=== PATIENT | female | born 1980 | race Caucasian/White ===

== ENCOUNTER 2020-06-09 13:15 | Emergency (ER) | payer MEDICARE, OTHER ==
[~2020-06-09] VITALS: Ht 172.7 cm; Wt 164.2 kg
[~2020-06-09 13:15] MED LIST: ALBU0.0912 IH; ATI.5 PO; BENZ-203 PO; FENO130C9 PO; FLUO40CA6 PO; HAL5 PO; IBUP-2213 PO; KEP500 PO; LEVE1000 PO; LORA0.5T6 PO; PANT40EC PO; RISP2TAB PO; TOPI200T7 PO; VALS160T2 PO
[2020-06-09] MEDS ORDERED: LORazepam 2 MG/ML VIAL IVP ONE ×3 (13:25→16:20)
[2020-06-09 13:26] VITALS: BP 109/62
[2020-06-09 14:32] LABS: BASOPHILS # (AUTO) 0.1 K/uL (0.00-0.22); BASOPHILS % (AUTO) 1.2 % (0.0-2.0); EOSINOPHILS # (AUTO) 0.3 K/uL (0-0.4); EOSINOPHILS % (AUTO) 2.7 % (0.0-4.0); HEMATOCRIT 39.7 % (36-48); HEMOGLOBIN 12.9 g/dL (12.0-16.0); LYMPHOCYTES % (AUTO) 18.8 % (20.5-51.1); MEAN CORPUSCULAR HEMOGLOBIN 28 pg (27-31); MEAN CORPUSCULAR HGB CONC 33 g/dL (33-37); MEAN CORPUSCULAR VOLUME 87.4 fL (80-94); MONOCYTES # (AUTO) 0.9 K/uL (0.8-1.0); MONOCYTES % (AUTO) 8.4 % (1.7-9.3); NEUTROPHILS # (AUTO) 7.3 K/uL (1.8-7.7); NEUTROPHILS % (AUTO) 68.9 % (42.2-75.2); PLATELET COUNT (AUTO) 238 K/uL (140-450); RED BLOOD CELL COUNT(AUTO) 4.54 MIL/uL (4.20-5.40); RED CELL DISTRIBUTION WIDTH 14.1 % (11.6-13.7); WHITE BLOOD COUNT (AUTO) 10.6 K/uL (4.8-10.8)
[2020-06-09] MEDS ORDERED: LORazepam 2 MG/ML VIAL ONE (14:39)
[2020-06-09 14:43] LABS: ALBUMIN 3.3 g/dL (3.4-5.0); ANION GAP 14.9 (8-16); CARBON DIOXIDE 24.1 mmol/L (21-32); CREATININE 0.6 mg/dL (0.6-1.3); TOTAL BILIRUBIN 0.3 mg/dL (0.0-1.0)
[2020-06-09 16:04] LABS: APPEARANCE,URINE HAZY (CLEAR); BILIRUBIN,URINE NEGATIVE (NEGATIVE); BLOOD, URINE NEGATIVE (NEGATIVE); COLOR,URINE YELLOW (YELLOW); LEUKOCYTE ESTERASE ,URINE NEGATIVE (NEGATIVE); NITRITE, URINE NEGATIVE (NEGATIVE); PH,URINE 5.5 (5.0-9.0); UGLUCOSE NEGATIVE (NEGATIVE)
[2020-06-09 17:47] VITALS: BP 122/59
== END 2020-06-09 17:45 | disposition home or self-care (01) ==
LOC: MED 13:15
DX: R56.9 Unspecified convulsions (principal); E11.9 Type 2 diabetes mellitus without complications; I10 Essential (primary) hypertension; Z88.8 Allergy status to other drugs, medicaments and biological substances; Z79.899 Other long term (current) drug therapy
CPT/HCPCS: 36415; 70450; 71045; 80053; 81003; 85025; 96374; 96376; 99285; J2060; Q0092

== ENCOUNTER 2022-07-17 20:13 | Inpatient (IN) | payer MEDICARE, OTHER ==
[~2022-07-17] VITALS: Ht 172.7 cm; Wt 164.2 kg
[~2022-07-17 20:13] MED LIST changes: -BENZ-203 PO; +BENZ-315 PO
--- NOTE | 2022-07-17 20:15 | NUR ---
PT BIBA FOR UNWITNESSED SEIZURE, PT WAS ON A WALK AND CALLED FAMILY STATING SHE WAS GOING TO HAVE A SEIZURE, FAMILY FOUND HER IN THE GRASS FACE DOWN, EMS ADMINSTERED A TOTAL OF 10 MG VERSED IN AND 10MG IM. REPORT GIVEN BY EMS, PT PLACED IN GOWN AND ON CONTACT PRINTER DRY FILM, SEIZURE PADS PLACED. IV ACCESS OBTAINED BY RN. DR CHAMBERS NOTIFIED.
--- NOTE | 2022-07-17 20:15 | NUR ---
PT BROUGHT TO BED 3 VIA JERRY JEFFRIES
--- NOTE | 2022-07-17 20:15 | NUR ---
EMS STATED PT HAD MULTIPLE SEIZURE ON THE WAY, PT HX- MENTALLY DELAYED, SEIZURE, PT PEAKING IN COMPLETE SENTENCES, NON POSTICAL, PT ANSWERED ALL A/OX 4 QUESTIONS.
[2022-07-17 20:17] VITALS: BP 111/80
--- NOTE | 2022-07-17 20:54 | NUR ---
LABS GIVEN TO PSYCHOLOGIST SOCIAL.
[2022-07-17] MEDS ORDERED: levETIRAcetam 1,000 MG in NACL 0.9% 100 ML IV ONE (21:00)
[2022-07-17 21:10] LABS: BASOPHILS # (AUTO) 0.1 K/uL (0.00-0.22); BASOPHILS % (AUTO) 0.5 % (0.0-2.0); EOSINOPHILS # (AUTO) 0.2 K/uL (0-0.4); EOSINOPHILS % (AUTO) 1.3 % (0.0-4.0); HEMATOCRIT 37.1 % (36-48); HEMOGLOBIN 12.2 g/dL (12.0-16.0); LYMPHOCYTES # (AUTO) 1.7 K/uL (2.5-16.5); LYMPHOCYTES % (AUTO) 14.2 % (20.5-51.1); MEAN CORPUSCULAR HEMOGLOBIN 27 pg (27-31); MEAN CORPUSCULAR HGB CONC 33 g/dL (33-37); MEAN CORPUSCULAR VOLUME 83.1 fL (80-94); MONOCYTES % (AUTO) 7.8 % (1.7-9.3); NEUTROPHILS # (AUTO) 9.4 K/uL (1.8-7.7); NEUTROPHILS % (AUTO) 76.2 % (42.2-75.2); PLATELET COUNT (AUTO) 192 K/uL (140-450); RED BLOOD CELL COUNT(AUTO) 4.46 MIL/uL (4.20-5.40); RED CELL DISTRIBUTION WIDTH 14.6 % (11.6-13.7); WHITE BLOOD COUNT (AUTO) 12.3 K/uL (4.8-10.8)
[2022-07-17] MEDS ORDERED: levETIRAcetam 100 MG/ML VIAL IV ONE (21:14)
--- NOTE | 2022-07-17 21:25 | NUR ---
PATIENT POSSIBLY HAVING SEIZURE WITH MD CHAMBERS AT BEDSIDE ASSESSING PATIENT. PATIENT RESPONDED TO SOLE REFLEX STIMULATION AT THIS TIME. PATIENT ON MONITOR AND KEPPRA AT THIS TIME. NO FURTHER ORDERS AT THIS TIME.
[2022-07-17] MEDS ORDERED: LORazepam 2 MG/ML VIAL IVP ONE (21:35)
--- NOTE | 2022-07-17 21:46 | NUR ---
PATIENT AMBULATED TO WITH STEADY GAIT. URINE COLLECTED
--- NOTE | 2022-07-17 21:55 | NUR ---
PATIENT ULISSES COLLECTED
--- NOTE | 2022-07-17 21:57 | NUR ---
PATIENT TAKEN TO CT VIA [facility]
--- NOTE | 2022-07-17 22:01 | NUR ---
PATIENT RETURNED FROM CT VIA [facility]
[2022-07-17] MEDS ORDERED: LOSA100T1 PO (22:03)
[2022-07-17] MEDS ORDERED: MONT10TA35 PO (22:03)
[2022-07-17] MEDS ORDERED: ATOR10TA PO (22:03)
[2022-07-17] MEDS ORDERED: METF-350 PO (22:03)
[2022-07-17 22:10] LABS: ANION GAP 15.1 (8-16); CARBON DIOXIDE 23.9 mmol/L (21-32)
[2022-07-17 22:11] LABS: TOTAL BILIRUBIN 0.2 mg/dL (0.0-1.0)
--- NOTE | 2022-07-17 23:32 | NUR ---
PATIENT APPEARS TO BE HAVING A SEIZURE. STERNAL RUB DONE. PATIENT O2 BACK TO BASELINE. MD AWARE.
[2022-07-18] MEDS ORDERED: ONDANSETRON 4 MG/2 ML VIAL IVP PRN (00:45)
[2022-07-18] MEDS ORDERED: LORazepam 1 MG TAB PO PRN (00:45)
[2022-07-18] MEDS ORDERED: HYDROcodone/APAP 5/325 MG 1 TAB TAB PO PRN (00:45)
[2022-07-18] MEDS ORDERED: MORPHINE SULFATE 4 MG/ML SYR IVP PRN (00:45)
--- NOTE | 2022-07-18 01:00 | NUR ---
Patient will be admitted to care of DO ZACKERY. Admited to TELEMETRY. Will go to room 106A. Belongings list completed. Report to JOAQUIN ALEJO. TRANSFER OF CARE
--- NOTE | 2022-07-18 01:20 | NUR ---
PATIENT WAS ADMITTED TO MST UNIT FROM ER VIA GURNEY. AAOX3. NO S/S OF RESPIRATORY DISTRESS. BREATHING NORMAL UNLABORED. ALL SAFETY PRECAUTIONS ARE IN PLACE. BED IN LOW POSITION WHEELS LOCKED. CALL LIGHT WITHIN REACH. MRSA SCREENING DONE. SKIN INTACT NO WOUNDS. PATIENT IS FOR OBSERVATION.
[2022-07-18] MEDS: NACL 0.9% 1,000 ML IV SCH ×2 (02:55→15:39)
[2022-07-18 04:00] VITALS: BP 121/68
[2022-07-18] MEDS ORDERED: DEXTROSE 50% 50 ML SYR IVP PRN (06:10)
--- NOTE | 2022-07-18 06:25 | NUR ---
FOUND PATIENT HAVING SEIZURES. PAGED DR. CRAWFORD CHILD PROTECTIVE SERVICES SPECIALIST DR FOR DR ZACKERY POLK. AWAITING FOR CALL BACK.
[2022-07-18] MEDS: BLOOD GLUCOSE MONITORING 1 DEV DEV FS SCH ×4 (06:54→21:03)
[2022-07-18] MEDS: INSULIN LISPRO SLIDING SCALE 100 UNITS/ML VIAL SUBQ PRN ×3 (06:55→21:03)
--- NOTE | 2022-07-18 07:35 | NUR ---
ENDORSED PATIENT TO DAY SHIFT NURSE FOR CONTINUITY OF CARE.
--- NOTE | 2022-07-18 07:36 | NUR ---
RECEIVED CALL FROM CONTINGENTS SUPERVISOR NURSE MELO FOR CONTINUITY OF CARE. PATIENT CALM AWAKE NO DISTRESS NOTED. RESPIRATION EVEN NAD NOT LABORED REPORTED ON 3 L OF O2 NASAL CANULA BUT WHEN I DID ROUND PATIENT ON ROOM AIR SATURATION OF 94% NOT ON ANY DISTRESS. IV SITE ON RIGHT WRIST RUNNING D5 NS AT 80 CC/HOUR. ALL SAFETY MEASURE IN PLACE.
[2022-07-18 08:00] VITALS: BP 113/62
--- NOTE | 2022-07-18 08:02 | NUR ---
RECEIVED CALL FROM MOTHER SUSHMA ALVAREZ ASKING THE PATIENT CONDITION AND UPDATED ON PATIENT CONDITION.
[2022-07-18] MEDS ORDERED: VALSARTAN 80 MG TAB PO SCH (09:00)
[2022-07-18] MEDS ORDERED: levETIRAcetam 500 MG TAB PO SCH (09:00)
--- NOTE | 2022-07-18 09:04 | NUR ---
SEEN AND EVALUATED BY DR. VIZCARRA. ALL HER HOME MEDICATION RECONCILED BY DR. VIZCARRA.
[2022-07-18] MEDS: FLUoxetine 20 MG CAP PO SCH (09:16)
[2022-07-18] MEDS: PANTOPRAZOLE 40 MG TABEC PO SCH (09:17)
[2022-07-18] MEDS: risperiDONE 1 MG TAB PO SCH ×2 (09:17→20:51)
[2022-07-18] MEDS: ATORVASTATIN 20 MG TAB PO SCH (09:17)
[2022-07-18] MEDS: LOSARTAN 50 MG TAB PO SCH (09:18)
[2022-07-18] MEDS: ACETAMINOPHEN 325 MG TAB PO PRN ×2 (09:18→22:22)
[2022-07-18] MEDS: TOPIRAMATE 100 MG TAB PO SCH ×2 (09:19→20:50)
--- NOTE | 2022-07-18 09:25 | NUR ---
PT TOOK ALL DUE MEDS. TOLERATED WELL. NO EPISODES OF SEIZURE AT THIS TIME, NO DISTRESS NOTED.
--- NOTE | 2022-07-18 11:04 | NUR ---
NURSE GOT CALLED INTO THE ROOM PT WAS SEIZING. RN AT BEDSIDE. PT ON SIDE SEIZED FOR 2 MINUTES.
[2022-07-18] MEDS: LORazepam 2 MG/ML VIAL IVP PRN (11:06)
--- NOTE | 2022-07-18 11:06 | NUR ---
ADMINISTERED PRN IVP ATIVAN FOR TONIC CLONIC SEIZURE FO ASSISTANT ASSOCIATE FULL PROFESSOR SERGIO.
[2022-07-18 12:00] VITALS: BP 121/76
--- NOTE | 2022-07-18 13:00 | NUR ---
PT C/O OF NAUSEA. GIVEN SODA PER REQUEST AND ZOFRAN IV BY JOAQUIN HERNÁNDEZ.
--- NOTE | 2022-07-18 13:56 | NUR ---
PATIENT HAS BEEN SCREENED AND CATEGORIZED MODERATE NUTRITION RISK. PATIENT WILL BE SEEN WITHIN 3-5 DAYS OF ADMISSION. 07/21/2210/24/[address]
--- NOTE | 2022-07-18 14:50 | NUR ---
AT 1434 I WAS CALLED TO HER ROOM THAT PATIENT IS HAVING SEIZURE NOTED WITH STIFFNESS OF BODY LASTED FOR 1 MINUTE AND THEN IT STOP AND CONTINUITY AGAIN FO ANOTHER MINUTE PATIENT SAFE BREATHING HEAVILY AT BEGINNING BUT CALM DOWN AFTER FEW MINUTE. NO INJURY NOTED. ON O2 AT 2L/MIN VIA NASAL CANULA. INFORM DR. VIZCARRA AND HE ORDER TO CHANGE KEPPRA ORAL TO IVPB ORDER NOTED AND CARRIED OUT.
--- NOTE | 2022-07-18 14:55 | NUR ---
IV ACCIDENTALLY PULLED WHEN PATIENT IS HAVING SEIZURE WILL TRY TO INSERT.
--- NOTE | 2022-07-18 15:30 | NUR ---
IV INSERTED 2X TRY. DR. ZAZUETA SEEN PATIENT AT BED SIDE.
[2022-07-18 16:00] VITALS: BP 111/71
--- NOTE | 2022-07-18 16:00 | NUR ---
ASSISTED PATIENT TO TOILET PATIENT ABLE AMBULATE NO SEIZURE NOTED AT THIS TIME.
--- NOTE | 2022-07-18 18:00 | NUR ---
SERVE DINNER AND PATIENT HAPPY TO HAVE HER DINNER SERVE.
--- NOTE | 2022-07-18 19:20 | NUR ---
ENDORSED PT TO CNC LATHE PROGRAMMER NURSE FOR CONTINUITY OF CARE. PT IN STABLE CONDITION.
--- NOTE | 2022-07-18 19:21 | NUR ---
RECEIVED REPORT FROM MORNING SHIFT NURSE FOR CONTINUITY OF CARE. PATIENT IN BED RESTING. NO S/S OF RESPIRATORY DISTRESS. BREATHING REGULAR NON LABORED. ALL SAFETY MEASURES IN PLACE. SKIN WARM AND DRY TO TOUCH. DENIES PAIN. AMBULATORY. IVF NS INFUSING AT 80 ML/HR ON THE LEFT FOREARM. CALL LIGHT WITHIN REACH.
[2022-07-18 20:00] VITALS: BP 106/59
--- NOTE | 2022-07-18 20:51 | NUR ---
ALL 2100 MEDICATIONS ADMINISTERED PER MD ORDER. TOLERATED WELL.
[2022-07-18] MEDS ORDERED: MONTELUKAST SODIUM 10 MG TAB PO SCH (21:00)
--- NOTE | 2022-07-18 21:03 | NUR ---
BLOOD SUGAR CHECK WAS 166 , HUMALOG INSULIN ADMINISTERED ORDERED PER SLIDING SCALE.
[2022-07-18] MEDS: levETIRAcetam 2,000 MG in NACL 0.9% 100 ML IV SCH (21:05)
--- NOTE | 2022-07-18 22:23 | NUR ---
PATIENT COMPLAINED OF MILD HEADACHE, MEDICATED.
[2022-07-19] VITALS: BP 133/66
[2022-07-19] MEDS: NACL 0.9% 1,000 ML IV SCH ×2 (01:45→06:40)
--- NOTE | 2022-07-19 02:10 | NUR ---
PATIENT SLEEPING. RESPIRATION EVEN UNLABORED. CALL LIGHT WITHIN REACH.
[2022-07-19 04:00] VITALS: BP 104/76
[2022-07-19] MEDS: BLOOD GLUCOSE MONITORING 1 DEV DEV FS SCH ×2 (06:39→12:04)
--- NOTE | 2022-07-19 07:25 | NUR ---
RECEIVED BEDSIDE REPORT FROM ETHICS OFFICER NURSE. PATIENT SLEEPING AROUSABLE BY TOUCH AND NAME. RESPIRATION EVEN UNLABORED ON ROOM AIR. NO DISTRESS NOTED. SKIN IS WARM AND DRY. IV PATENT AND INTACT. PLAN OF CARE DISCUSSED. ALL SAFETY MEASURE IN PLACE. BED IS AT LOW POSITION. CALL LIGHT WITHIN REACH. WILL CONTINUE TO MONITOR.
--- NOTE | 2022-07-19 07:26 | NUR ---
REPORT GIVEN TO MORNING SHIFT NURSE FOR CONTINUITY OF CARE. NO EPISODE OF SEIZURE DURING THE SHIFT.
[2022-07-19 07:38] LABS: ALBUMIN 2.8 g/dL (3.4-5.0); ANION GAP 13.8 (8-16); CREATININE 0.7 mg/dL (0.6-1.3); POTASSIUM 3.8 mmol/L (3.5-5.1); TOTAL BILIRUBIN 0.3 mg/dL (0.0-1.0)
[2022-07-19 08:00] VITALS: BP 124/74
[2022-07-19] MEDS: LORazepam 2 MG/ML VIAL IVP PRN (08:42)
[2022-07-19] MEDS: LOSARTAN 50 MG TAB PO SCH (08:43)
[2022-07-19] MEDS: FLUoxetine 20 MG CAP PO SCH (08:43)
[2022-07-19] MEDS: risperiDONE 1 MG TAB PO SCH (08:43)
[2022-07-19] MEDS: ATORVASTATIN 20 MG TAB PO SCH (08:44)
[2022-07-19] MEDS: PANTOPRAZOLE 40 MG TABEC PO SCH (08:44)
[2022-07-19] MEDS: levETIRAcetam 2,000 MG in NACL 0.9% 100 ML IV SCH (08:44)
[2022-07-19] MEDS: TOPIRAMATE 100 MG TAB PO SCH (08:44)
--- NOTE | 2022-07-19 08:45 | NUR ---
ALL SCHEDULED MEDS WERE GIVEN PER ORDER. WILL CONTINUE TO MONITOR
--- NOTE | 2022-07-19 08:48 | NUR ---
PATIENT HAD AN EPISODE OF SEIZURE FOR 2MINS, RT AND PT AT THE BEDSIDE. VITALS WERE TAKEN. PRN ATIVAN GIVEN PER ORDER. WILL CONTINUE TO MONITOR.
[2022-07-19 09:59] LABS: CREATININE 0.6 mg/dL (0.6-1.3)
--- NOTE | 2022-07-19 10:09 | NUR ---
DC PLANNING PT IS DEVELOPMENTALLY DELAYED THEREFORE ANIKET OUTREACHED TO PT'S MOTHER, SUSHMA ALVAREZ TO GATHER COLLATERAL INFORMATION. SUSHMA REPORTS PATIENT RESIDES N A SINGLE STORY APT WITH HER AT THE ADDRESS LISTED ON FILE. SUSHMA IS PATIENTS EMERGENCY CONTACT AND DECISION MAKER. SUSHMA REPORTS THAT PTS SISTER, SALONI, CAN ALSO BE UTILIZED EMERGENCY CONTACT. PT IS REPORTED TO MEET WITH PCP REGULARLY, LAST VISIT; "COUPLE MONTHS AGO". SUSHMA REPORTS PATIENT ALSO MEET WITH A NEUROLOGIST DR. LUIS EVERY 2-5 MONTHS. PATIENT IS ALSO FOLLOWED BY PSYCHIATRIST DR. CASANOVA ([phone]) WHOM SHE MEETS WITH EVERY 5-8 WEEKS. 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 SUSHMA REPORTS THAT PATIENT HAS BEEN OFF MEDS FOR SCHIZOPHRENIA FOR THE LAST SEVERAL YEARS HOWEVER, IS MAKING ARRANGEMENTS TO MEET WITH PSYCHIATRIST FOR PATIENT TO BE REEVALUATED FOR MEDS. PATIENT IS [facility], [facility], [employer]. SUSHMA REPORTS WORKING CLOSELY WITH [facility] WORKER ON FINDING PATIENT A [facility] PATIENT HAS CHRONIC TENDENCIES TO WANDER OFF. PATIENT IS REPORTED TO WANDER OFF 1-2X WEEKLY. SUSHMA REPORTS THAT PATIENT IS MEDICATION COMPLIANT AND DENIES BARRIERS IN ACCESSING NEEDED MEDICATIONS. PATIENT RECEIVES MEDICATION FROM [facility] [address] IN [place], WHEN NEEDED. PATIENT IS REPORTED TO BE AMBULATORY WITH OCCASIONAL DME ASSISTANCE; FWW, CANE, WC AND REQUIRES ASSISTANCE WITH ADL'S. SUSHMA IS PATIENTS IHSS CAREGIVER AND RECEIVES 104 HRS/WEEK. PATIENT ALSO RECEIVES RESPITE HOURS OD 4HRS/3X WEEKLY. DC PLAN IS FOR PATIENT TO RETURN HOME WITH MOTHER PROVIDING TRANSPORTATION. ANIKET INQUIRED ON RESOURCES NEEDED, SUSHMA DECLINED AT THIS TIME.
--- NOTE | 2022-07-19 11:30 | NUR ---
MADE ROUNDS, PATIENT SLEEPING NO DISTRESS NOTED. WILL CONTINUE TO MONITOR
[2022-07-19 11:42] VITALS: BP 107/69
[2022-07-19 12:00] VITALS: BP 111/77
--- NOTE | 2022-07-19 12:00 | NUR ---
ALL DISCHARGE PAPERWORK SIGNED, EXPLAINED DISCHARGE INSTRUCTION. PATIENT VERBALIZES UNDERSTANDING. AWAITING FOR TRAY PACKER
[2022-07-19] MEDS: INSULIN LISPRO SLIDING SCALE 100 UNITS/ML VIAL SUBQ PRN (12:05)
--- NOTE | 2022-07-19 12:17 | NUR ---
NOTIFIED PATIENT THAT SHES GETTING DISCHARGE TODAY, NOTIFIED FAMILY MEMBER. FAMILY AWARE AND WILL BE HERE SOON.
--- NOTE | 2022-07-19 12:50 | NUR ---
PATIENT LEFT THE FACILITY IN STABLE CONDITION, HEADING HOME. ALL BELONGINGS AND PAPERWORK GIVEN.
== END 2022-07-19 13:47 | disposition home or self-care (01) | DRG 101 ==
LOC: MED 20:13 → MTU 07-18 00:52 → OBSVTOIN 07-19 09:08
PROVIDERS: ADMIT Internal Medicine; ATTEND Internal Medicine
DX: G40.909 Epilepsy, unspecified, not intractable, without status epilepticus (principal); Z68.43 Body mass index [BMI] 50.0-59.9, adult; E11.9 Type 2 diabetes mellitus without complications; F41.9 Anxiety disorder, unspecified; I10 Essential (primary) hypertension; J45.909 Unspecified asthma, uncomplicated; E66.01 Morbid (severe) obesity due to excess calories; Z20.822 Contact with and (suspected) exposure to COVID-19; Z88.8 Allergy status to other drugs, medicaments and biological substances; Z82.5 Family history of asthma and other chronic lower respiratory diseases; Z82.49 Family history of ischemic heart disease and other diseases of the circulatory system
CPT/HCPCS: 96365; 99291; G0378; 36415; 70450; 80053; 80173; 82948; 83735; 85025; 87081; 97163-GP; 97530; J1953; J2060; J2405

== ENCOUNTER 2024-03-16 18:53 | Emergency (ER) | payer OTHER ==
[~2024-03-16] VITALS: Ht 165.1 cm; Wt 99.8 kg
[2024-03-16 18:53] VITALS: BP 139/87; PULSE 84; RESP 17; TEMP 98; O2SAT 97
[~2024-03-16 18:53] MED LIST changes: +ATOR10TA PO; -FENO130C9 PO; +LOSA-272 PO; +METF-350 PO; +MONT-72 PO
[2024-03-16 20:42] LABS: APPEARANCE,URINE CLEAR (CLEAR); BILIRUBIN,URINE NEGATIVE (NEGATIVE); BLOOD, URINE NEGATIVE (NEGATIVE); COLOR,URINE YELLOW (YELLOW); LEUKOCYTE ESTERASE ,URINE NEGATIVE (NEGATIVE); NITRITE, URINE NEGATIVE (NEGATIVE); PROTEIN,URINE NEGATIVE (NEGATIVE); UGLUCOSE NEGATIVE (NEGATIVE); UROBILINOGEN,URINE 0.2 EU/dL (0.2 - 1)
[2024-03-16 20:56] LABS: ALBUMIN 3.4 g/dL (3.4-5.0); TOTAL BILIRUBIN 0.1 mg/dL (0.0-1.0); TOTAL PROTEIN, SERUM 7.4 g/dL (6.4-8.2)
[2024-03-16 21:01] LABS: BASOPHILS # (AUTO) 0.1 K/uL (0.00-0.22); BASOPHILS % (AUTO) 0.5 % (0.0-2.0); EOSINOPHILS # (AUTO) 0.3 K/uL (0-0.4); EOSINOPHILS % (AUTO) 2.2 % (0.0-4.0); HEMATOCRIT 40.6 % (36-48); HEMOGLOBIN 12.8 g/dL (12.0-16.0); LYMPHOCYTES % (AUTO) 27.7 % (20.5-51.1); MEAN CORPUSCULAR HEMOGLOBIN 27 pg (27-31); MEAN CORPUSCULAR HGB CONC 32 g/dL (33-37); MEAN CORPUSCULAR VOLUME 83.7 fL (80-94); MONOCYTES # (AUTO) 1.1 K/uL (0.8-1.0); MONOCYTES % (AUTO) 7.4 % (1.7-9.3); NEUTROPHILS # (AUTO) 9.1 K/uL (1.8-7.7); NEUTROPHILS % (AUTO) 62.2 % (42.2-75.2); PLATELET COUNT (AUTO) 92 K/uL (140-450); RED BLOOD CELL COUNT(AUTO) 4.85 MIL/uL (4.20-5.40); RED CELL DISTRIBUTION WIDTH 14.7 % (11.6-13.7); WHITE BLOOD COUNT (AUTO) 14.6 K/uL (4.8-10.8)
[2024-03-16 21:02] LABS: ANION GAP 14.9 (8-16); CALCIUM 8.9 mg/dL (8.5-10.1); CARBON DIOXIDE 22.9 mmol/L (21-32); CREATININE 0.6 mg/dL (0.6-1.3); POTASSIUM 3.8 mmol/L (3.5-5.1)
[2024-03-16] MEDS ORDERED: ALUMINUM HYD/MAG/SIMETHICONE 30 ML UDC ONE (22:05)
[2024-03-16] MEDS ORDERED: DICYCLOMINE HCL LIQUID 10 MG/5 ML UDC ONE (22:05)
[2024-03-16] MEDS: DICYCLOMINE HCL LIQUID 20 MG, ALUMINUM HYD/MAG/SIMETHICONE 30 ML, LIDOCAINE VISCOUS 2% ... PO ONE (22:16)
[2024-03-17] MEDS ORDERED: OMEP40EC23 PO (01:03)
[2024-03-17] MEDS ORDERED: SUCR1TAB56 PO (01:03)
[2024-03-17 09:37] VITALS: BP 129/84; PULSE 80; RESP 18; TEMP 98; O2SAT 97
== END 2024-03-17 09:35 | disposition home or self-care (01) ==
LOC: MED 18:53
DX: R10.13 Epigastric pain (principal); R10.31 Right lower quadrant pain; J45.909 Unspecified asthma, uncomplicated; E11.9 Type 2 diabetes mellitus without complications; I10 Essential (primary) hypertension; Z79.4 Long term (current) use of insulin; Z79.899 Other long term (current) drug therapy; Z86.69 Personal history of other diseases of the nervous system and sense organs; Z88.8 Allergy status to other drugs, medicaments and biological substances
CPT/HCPCS: 36415; 80048; 80076; 81003; 81025; 83690; 85025; 99285

== ENCOUNTER 2024-04-06 17:52 | Emergency (ER) | payer OTHER ==
[~2024-04-06] VITALS: Ht 172.7 cm; Wt 140.2 kg
[~2024-04-06 17:52] MED LIST changes: +OMEP40EC23 PO; +SUCR1TAB56 PO
[2024-04-06 18:22] VITALS: BP 141/96; PULSE 81; RESP 18; TEMP 97.9; O2SAT 96
[2024-04-06 19:00] VITALS: O2SAT 97
[2024-04-06 20:08] VITALS: BP 136/92; PULSE 78; RESP 18; TEMP 98.1; O2SAT 98
== END 2024-04-06 20:12 | disposition home or self-care (01) ==
LOC: MED 17:52
DX: S09.90XA Unspecified injury of head, initial encounter (principal); J45.909 Unspecified asthma, uncomplicated; E11.9 Type 2 diabetes mellitus without complications; I10 Essential (primary) hypertension; Z86.69 Personal history of other diseases of the nervous system and sense organs; Z79.899 Other long term (current) drug therapy; Z88.8 Allergy status to other drugs, medicaments and biological substances; W01.198A Fall on same level from slipping, tripping and stumbling with subsequent striking against other object, initial encounter; Y92.89 Other specified places as the place of occurrence of the external cause; Y93.89 Activity, other specified; Y99.8 Other external cause status
CPT/HCPCS: 70450; 99284

== ENCOUNTER 2024-04-24 13:34 | Inpatient (IN) | payer OTHER ==
[~2024-04-24] VITALS: Ht 170.2 cm; Wt 113.4 kg
[2024-04-24] MEDS: LACOSAMIDE 100 MG TAB PO SCH ×2 (09:00→17:41)
[2024-04-24 13:48] VITALS: BP 119/75; PULSE 82; RESP 18; TEMP 98; O2SAT 97
[2024-04-24] MEDS: ACETAMINOPHEN 325 MG TAB PO ONE (14:20)
[2024-04-24 14:25] LABS: BASOPHILS # (AUTO) 0.1 K/uL (0.00-0.22); BASOPHILS % (AUTO) 0.6 % (0.0-2.0); EOSINOPHILS # (AUTO) 0.3 K/uL (0-0.4); EOSINOPHILS % (AUTO) 3.1 % (0.0-4.0); HEMATOCRIT 40.5 % (36-48); HEMOGLOBIN 13.1 g/dL (12.0-16.0); LYMPHOCYTES # (AUTO) 3.4 K/uL (2.5-16.5); LYMPHOCYTES % (AUTO) 31.7 % (20.5-51.1); MEAN CORPUSCULAR HEMOGLOBIN 27 pg (27-31); MEAN CORPUSCULAR HGB CONC 32 g/dL (33-37); MEAN CORPUSCULAR VOLUME 83.1 fL (80-94); MONOCYTES # (AUTO) 0.9 K/uL (0.8-1.0); MONOCYTES % (AUTO) 8.7 % (1.7-9.3); NEUTROPHILS # (AUTO) 5.9 K/uL (1.8-7.7); NEUTROPHILS % (AUTO) 55.9 % (42.2-75.2); PLATELET COUNT (AUTO) 179 K/uL (140-450); RED BLOOD CELL COUNT(AUTO) 4.88 MIL/uL (4.20-5.40); WHITE BLOOD COUNT (AUTO) 10.6 K/uL (4.8-10.8)
[2024-04-24 14:33] LABS: ANION GAP 13.2 (8-16); CARBON DIOXIDE 27.3 mmol/L (21-32); CREATININE 0.7 mg/dL (0.6-1.3); POTASSIUM 3.5 mmol/L (3.5-5.1)
[2024-04-24] MEDS: levETIRAcetam 1,000 MG in NACL 0.9% 100 ML IV ONE (14:40)
[2024-04-24] MEDS ORDERED: LORazepam 2 MG/ML VIAL ONE ×3 (14:45→19:04)
[2024-04-24] MEDS: LORazepam 2 MG/ML VIAL IVP ONE ×2 (14:46→17:46)
[2024-04-24 15:21] LABS: APPEARANCE,URINE CLEAR (CLEAR); BILIRUBIN,URINE NEGATIVE (NEGATIVE); BLOOD, URINE NEGATIVE (NEGATIVE); COLOR,URINE YELLOW (YELLOW); LEUKOCYTE ESTERASE ,URINE NEGATIVE (NEGATIVE); NITRITE, URINE NEGATIVE (NEGATIVE); PROTEIN,URINE NEGATIVE (NEGATIVE); UGLUCOSE NEGATIVE (NEGATIVE); UROBILINOGEN,URINE 0.2 EU/dL (0.2 - 1)
[2024-04-24] MEDS ORDERED: LACO100T PO (17:26)
[2024-04-24] MEDS ORDERED: DOCUSATE SODIUM 100 MG GELCAP PO PRN (17:55)
[2024-04-24] MEDS ORDERED: guaiFENesin DM 200/20 MG-10 ML 10 ML UDC PO PRN (17:55)
[2024-04-24] MEDS ORDERED: ZOLPIDEM 5 MG TAB PO PRN (17:55)
[2024-04-24] MEDS ORDERED: ACETAMINOPHEN 325 MG TAB PO PRN (17:55)
[2024-04-24] MEDS ORDERED: DEXTROSE 50% 50 ML SYR IVP PRN (18:00)
[2024-04-24] MEDS: NACL 0.9% 1,000 ML IV SCH (18:08)
[2024-04-24] MEDS: LORazepam 2 MG/ML VIAL IM/IVP ONE (19:16)
[2024-04-24] MEDS: ONDANSETRON 4 MG/2 ML VIAL IM/IVP PRN (19:36)
[2024-04-24] MEDS ORDERED: metFORMIN 850 MG TAB PO SCH (21:00)
[2024-04-24] MEDS: BENZTROPINE 1 MG TAB PO SCH (21:05)
[2024-04-24] MEDS: levETIRAcetam 500 MG TAB PO SCH (21:05)
[2024-04-24] MEDS: MONTELUKAST SODIUM 10 MG TAB PO SCH (21:06)
[2024-04-24] MEDS: risperiDONE 1 MG TAB PO SCH (21:06)
[2024-04-24] MEDS: BLOOD GLUCOSE MONITORING 1 DEV DEV FS SCH (21:12)
[2024-04-25] VITALS (9 sets, daily range): BP systolic 99–109; BP diastolic 51–75; PULSE 61–80; RESP 18; TEMP 96.5–97.6; O2SAT 94–100
[2024-04-25 07:02] LABS: BASOPHILS # (AUTO) 0.1 K/uL (0.00-0.22); BASOPHILS % (AUTO) 0.6 % (0.0-2.0); EOSINOPHILS # (AUTO) 0.4 K/uL (0-0.4); EOSINOPHILS % (AUTO) 3.4 % (0.0-4.0); HEMATOCRIT 39.2 % (36-48); HEMOGLOBIN 12.6 g/dL (12.0-16.0); LYMPHOCYTES # (AUTO) 3.3 K/uL (2.5-16.5); LYMPHOCYTES % (AUTO) 30.9 % (20.5-51.1); MEAN CORPUSCULAR HEMOGLOBIN 27 pg (27-31); MEAN CORPUSCULAR HGB CONC 32 g/dL (33-37); MEAN CORPUSCULAR VOLUME 83.3 fL (80-94); MONOCYTES # (AUTO) 0.9 K/uL (0.8-1.0); MONOCYTES % (AUTO) 8.5 % (1.7-9.3); NEUTROPHILS # (AUTO) 5.9 K/uL (1.8-7.7); NEUTROPHILS % (AUTO) 56.6 % (42.2-75.2); PLATELET COUNT (AUTO) 144 K/uL (140-450); RED BLOOD CELL COUNT(AUTO) 4.71 MIL/uL (4.20-5.40); RED CELL DISTRIBUTION WIDTH 14.8 % (11.6-13.7); WHITE BLOOD COUNT (AUTO) 10.5 K/uL (4.8-10.8)
[2024-04-25 07:38] LABS: ALBUMIN 3.2 g/dL (3.4-5.0); ANION GAP 14.5 (8-16); CALCIUM 9.1 mg/dL (8.5-10.1); CARBON DIOXIDE 24.4 mmol/L (21-32); CREATININE 0.6 mg/dL (0.6-1.3); POTASSIUM 3.9 mmol/L (3.5-5.1); TOTAL BILIRUBIN 0.4 mg/dL (0.0-1.0)
[2024-04-25] MEDS: PANTOPRAZOLE 40 MG TABEC PO SCH (08:58)
[2024-04-25] MEDS: ATORVASTATIN 20 MG TAB PO SCH (08:58)
[2024-04-25] MEDS: TOPIRAMATE 100 MG TAB PO SCH (20:28)
[2024-04-25] MEDS: INSULIN LISPRO SLIDING SCALE 100 UNITS/ML VIAL SUBQ PRN (20:39)
[2024-04-26] VITALS (10 sets, daily range): BP systolic 99–127; BP diastolic 63–73; PULSE 59–126; RESP 18–28; TEMP 96.8–98; O2SAT 97–100
[2024-04-26 08:05] LABS: ALBUMIN 3.2 g/dL (3.4-5.0); ANION GAP 14.8 (8-16); CALCIUM 9.4 mg/dL (8.5-10.1); CARBON DIOXIDE 24.2 mmol/L (21-32); CREATININE 0.6 mg/dL (0.6-1.3); TOTAL BILIRUBIN 0.3 mg/dL (0.0-1.0)
[2024-04-26 08:22] LABS: BASOPHILS # (AUTO) 0.1 K/uL (0.00-0.22); BASOPHILS % (AUTO) 0.5 % (0.0-2.0); EOSINOPHILS # (AUTO) 0.4 K/uL (0-0.4); EOSINOPHILS % (AUTO) 3.4 % (0.0-4.0); HEMATOCRIT 39.4 % (36-48); HEMOGLOBIN 12.7 g/dL (12.0-16.0); LYMPHOCYTES # (AUTO) 3.8 K/uL (2.5-16.5); LYMPHOCYTES % (AUTO) 30.3 % (20.5-51.1); MEAN CORPUSCULAR HEMOGLOBIN 27 pg (27-31); MEAN CORPUSCULAR HGB CONC 32 g/dL (33-37); MEAN CORPUSCULAR VOLUME 83.2 fL (80-94); MONOCYTES # (AUTO) 1.1 K/uL (0.8-1.0); MONOCYTES % (AUTO) 8.6 % (1.7-9.3); NEUTROPHILS # (AUTO) 7.2 K/uL (1.8-7.7); NEUTROPHILS % (AUTO) 57.2 % (42.2-75.2); PLATELET COUNT (AUTO) 166 K/uL (140-450); RED BLOOD CELL COUNT(AUTO) 4.73 MIL/uL (4.20-5.40); RED CELL DISTRIBUTION WIDTH 14.7 % (11.6-13.7); WHITE BLOOD COUNT (AUTO) 12.5 K/uL (4.8-10.8)
[2024-04-26] MEDS: HYDROcodone/APAP 7.5/325 MG 1 TAB PO PRN (09:12)
[2024-04-26] MEDS: LORazepam 2 MG/ML VIAL ONE ×2 (20:30)
[2024-04-26] MEDS: levETIRAcetam 1,000 MG in NACL 0.9% 100 ML IV ONE (21:45)
[2024-04-26] MEDS: levETIRAcetam 100 MG/ML VIAL IV ONE (22:05)
[2024-04-26] MEDS: LORazepam 2 MG/ML VIAL IVP PRN (23:08)
[2024-04-26] MEDS: LORazepam 2 MG/ML VIAL IVP ONE (23:21)
[2024-04-27] VITALS (16 sets, daily range): BP systolic 103–132; BP diastolic 63–88; PULSE 66–105; RESP 14–22; TEMP 97.1–98.1; O2SAT 95–100
[2024-04-27 05:40] LABS: BASOPHILS # (AUTO) 0.1 K/uL (0.00-0.22); BASOPHILS % (AUTO) 0.9 % (0.0-2.0); EOSINOPHILS # (AUTO) 0.4 K/uL (0-0.4); EOSINOPHILS % (AUTO) 2.9 % (0.0-4.0); HEMATOCRIT 38.5 % (36-48); HEMOGLOBIN 12.3 g/dL (12.0-16.0); LYMPHOCYTES % (AUTO) 29.6 % (20.5-51.1); MEAN CORPUSCULAR HEMOGLOBIN 27 pg (27-31); MEAN CORPUSCULAR HGB CONC 32 g/dL (33-37); MEAN CORPUSCULAR VOLUME 83.3 fL (80-94); MONOCYTES # (AUTO) 1.2 K/uL (0.8-1.0); MONOCYTES % (AUTO) 8.7 % (1.7-9.3); NEUTROPHILS # (AUTO) 7.8 K/uL (1.8-7.7); NEUTROPHILS % (AUTO) 57.9 % (42.2-75.2); PLATELET COUNT (AUTO) 134 K/uL (140-450); RED BLOOD CELL COUNT(AUTO) 4.61 MIL/uL (4.20-5.40); RED CELL DISTRIBUTION WIDTH 15.3 % (11.6-13.7); WHITE BLOOD COUNT (AUTO) 13.4 K/uL (4.8-10.8)
[2024-04-27 06:30] LABS: ALBUMIN 3.1 g/dL (3.4-5.0); ANION GAP 13.6 (8-16); CALCIUM 9.4 mg/dL (8.5-10.1); CARBON DIOXIDE 26.1 mmol/L (21-32); CREATININE 0.7 mg/dL (0.6-1.3); POTASSIUM 3.7 mmol/L (3.5-5.1); TOTAL BILIRUBIN 0.2 mg/dL (0.0-1.0); TOTAL PROTEIN, SERUM 6.9 g/dL (6.4-8.2)
[2024-04-27] MEDS: LORazepam 2 MG/ML VIAL IVP PRN (07:23)
[2024-04-27] MEDS: PANTOPRAZOLE 40 MG INJ VIAL IVP SCH (09:05)
[2024-04-27] MEDS: levETIRAcetam 500 MG in NACL 0.9% 100 ML IV SCH (10:00)
[2024-04-27] MEDS: levETIRAcetam 2,000 MG in NACL 0.9% 100 ML IV SCH (20:19)
[2024-04-27] MEDS: LACOSAMIDE 10 MG/ML GT SCH (20:28)
[2024-04-27] MEDS ORDERED: levETIRAcetam 2,000 MG in NACL 0.9% 100 ML IV SCH (21:00)
[2024-04-28] VITALS (16 sets, daily range): BP systolic 103–131; BP diastolic 62–80; PULSE 69–94; RESP 16–20; TEMP 97.1–98.3; O2SAT 94–100
[2024-04-28 05:36] LABS: BASOPHILS # (AUTO) 0.1 K/uL (0.00-0.22); BASOPHILS % (AUTO) 0.5 % (0.0-2.0); EOSINOPHILS # (AUTO) 0.4 K/uL (0-0.4); EOSINOPHILS % (AUTO) 3.4 % (0.0-4.0); HEMATOCRIT 39.2 % (36-48); HEMOGLOBIN 12.6 g/dL (12.0-16.0); LYMPHOCYTES # (AUTO) 3.4 K/uL (2.5-16.5); LYMPHOCYTES % (AUTO) 29.9 % (20.5-51.1); MEAN CORPUSCULAR HEMOGLOBIN 27 pg (27-31); MEAN CORPUSCULAR HGB CONC 32 g/dL (33-37); MEAN CORPUSCULAR VOLUME 83.3 fL (80-94); MONOCYTES # (AUTO) 0.9 K/uL (0.8-1.0); MONOCYTES % (AUTO) 8.4 % (1.7-9.3); NEUTROPHILS # (AUTO) 6.5 K/uL (1.8-7.7); NEUTROPHILS % (AUTO) 57.8 % (42.2-75.2); PLATELET COUNT (AUTO) 131 K/uL (140-450); RED CELL DISTRIBUTION WIDTH 14.7 % (11.6-13.7); WHITE BLOOD COUNT (AUTO) 11.3 K/uL (4.8-10.8)
[2024-04-28 06:25] LABS: ALBUMIN 3.3 g/dL (3.4-5.0); ANION GAP 11.9 (8-16); CALCIUM 9.2 mg/dL (8.5-10.1); CARBON DIOXIDE 26.6 mmol/L (21-32); CREATININE 0.6 mg/dL (0.6-1.3); POTASSIUM 3.5 mmol/L (3.5-5.1); TOTAL BILIRUBIN 0.4 mg/dL (0.0-1.0); TOTAL PROTEIN, SERUM 7.1 g/dL (6.4-8.2)
[2024-04-28] MEDS: PANTOPRAZOLE 40 MG INJ VIAL IVP SCH (08:26)
[2024-04-28] MEDS: POTASSIUM CHLORIDE 10 MEQ TABER PO PRN (08:27)
[2024-04-28] MEDS: TOPIRAMATE 100 MG TAB PO SCH (13:52)
[2024-04-28] MEDS: diazePAM 5 MG TAB PO SCH (13:52)
[2024-04-28] MEDS ORDERED: ALBUTEROL SULFATE/IPRATROPIU 3 ML SOL IH SCH (19:30)
[2024-04-28] MEDS: ALBUTEROL 0.083% 2.5 MG/3 ML NEBU INH SCH (19:41)
[2024-04-29] VITALS (10 sets, daily range): BP systolic 103–120; BP diastolic 63–72; PULSE 72–103; RESP 16–20; TEMP 97.2–97.5; O2SAT 95–99
[2024-04-29 05:27] LABS: BASOPHILS # (AUTO) 0.1 K/uL (0.00-0.22); BASOPHILS % (AUTO) 0.8 % (0.0-2.0); EOSINOPHILS # (AUTO) 0.4 K/uL (0-0.4); EOSINOPHILS % (AUTO) 3.7 % (0.0-4.0); HEMATOCRIT 41.2 % (36-48); HEMOGLOBIN 13.4 g/dL (12.0-16.0); LYMPHOCYTES # (AUTO) 2.7 K/uL (2.5-16.5); LYMPHOCYTES % (AUTO) 24.8 % (20.5-51.1); MEAN CORPUSCULAR HEMOGLOBIN 27 pg (27-31); MEAN CORPUSCULAR HGB CONC 33 g/dL (33-37); MEAN CORPUSCULAR VOLUME 83.7 fL (80-94); MONOCYTES # (AUTO) 0.9 K/uL (0.8-1.0); MONOCYTES % (AUTO) 8.1 % (1.7-9.3); NEUTROPHILS # (AUTO) 6.8 K/uL (1.8-7.7); NEUTROPHILS % (AUTO) 62.6 % (42.2-75.2); PLATELET COUNT (AUTO) 163 K/uL (140-450); RED BLOOD CELL COUNT(AUTO) 4.93 MIL/uL (4.20-5.40); RED CELL DISTRIBUTION WIDTH 14.9 % (11.6-13.7); WHITE BLOOD COUNT (AUTO) 10.8 K/uL (4.8-10.8)
[2024-04-29 06:02] LABS: ALBUMIN 3.4 g/dL (3.4-5.0); ANION GAP 16.8 (8-16); CALCIUM 9.3 mg/dL (8.5-10.1); CARBON DIOXIDE 22.6 mmol/L (21-32); CREATININE 0.7 mg/dL (0.6-1.3); POTASSIUM 3.4 mmol/L (3.5-5.1); TOTAL BILIRUBIN 0.4 mg/dL (0.0-1.0); TOTAL PROTEIN, SERUM 7.4 g/dL (6.4-8.2)
[2024-04-30] VITALS (8 sets, daily range): BP systolic 107–139; BP diastolic 64–81; PULSE 75–103; RESP 14–20; TEMP 96.9–97.8; O2SAT 94–98
[2024-04-30 06:52] LABS: BASOPHILS # (AUTO) 0.1 K/uL (0.00-0.22); BASOPHILS % (AUTO) 0.6 % (0.0-2.0); EOSINOPHILS # (AUTO) 0.3 K/uL (0-0.4); HEMATOCRIT 38.2 % (36-48); HEMOGLOBIN 12.6 g/dL (12.0-16.0); LYMPHOCYTES # (AUTO) 3.1 K/uL (2.5-16.5); LYMPHOCYTES % (AUTO) 28.5 % (20.5-51.1); MEAN CORPUSCULAR HEMOGLOBIN 27 pg (27-31); MEAN CORPUSCULAR HGB CONC 33 g/dL (33-37); MEAN CORPUSCULAR VOLUME 82.8 fL (80-94); MONOCYTES # (AUTO) 0.9 K/uL (0.8-1.0); MONOCYTES % (AUTO) 8.5 % (1.7-9.3); NEUTROPHILS # (AUTO) 6.4 K/uL (1.8-7.7); NEUTROPHILS % (AUTO) 59.4 % (42.2-75.2); PLATELET COUNT (AUTO) 207 K/uL (140-450); RED BLOOD CELL COUNT(AUTO) 4.62 MIL/uL (4.20-5.40); RED CELL DISTRIBUTION WIDTH 15.2 % (11.6-13.7); WHITE BLOOD COUNT (AUTO) 10.8 K/uL (4.8-10.8)
[2024-04-30 07:05] LABS: ALBUMIN 3.2 g/dL (3.4-5.0); CALCIUM 9.1 mg/dL (8.5-10.1); CARBON DIOXIDE 25.3 mmol/L (21-32); CREATININE 0.6 mg/dL (0.6-1.3); POTASSIUM 3.3 mmol/L (3.5-5.1); TOTAL BILIRUBIN 0.4 mg/dL (0.0-1.0); TOTAL PROTEIN, SERUM 7.3 g/dL (6.4-8.2)
[2024-05-01] VITALS (7 sets, daily range): BP systolic 103–142; BP diastolic 61–81; PULSE 57–79; RESP 16–18; TEMP 97.1–97.9; O2SAT 95–98
[2024-05-01 06:19] LABS: BASOPHILS # (AUTO) 0.3 K/uL (0.00-0.22); BASOPHILS % (AUTO) 3.1 % (0.0-2.0); EOSINOPHILS # (AUTO) 0.5 K/uL (0-0.4); EOSINOPHILS % (AUTO) 4.6 % (0.0-4.0); HEMATOCRIT 37.9 % (36-48); HEMOGLOBIN 12.3 g/dL (12.0-16.0); LYMPHOCYTES # (AUTO) 2.8 K/uL (2.5-16.5); LYMPHOCYTES % (AUTO) 26.1 % (20.5-51.1); MEAN CORPUSCULAR HEMOGLOBIN 27 pg (27-31); MEAN CORPUSCULAR HGB CONC 33 g/dL (33-37); MONOCYTES # (AUTO) 0.9 K/uL (0.8-1.0); MONOCYTES % (AUTO) 8.2 % (1.7-9.3); NEUTROPHILS # (AUTO) 6.2 K/uL (1.8-7.7); PLATELET COUNT (AUTO) 108 K/uL (140-450); RED BLOOD CELL COUNT(AUTO) 4.57 MIL/uL (4.20-5.40); RED CELL DISTRIBUTION WIDTH 15.1 % (11.6-13.7); WHITE BLOOD COUNT (AUTO) 10.7 K/uL (4.8-10.8)
[2024-05-01 07:06] LABS: ALBUMIN 3.1 g/dL (3.4-5.0); ANION GAP 17.1 (8-16); CALCIUM 9.6 mg/dL (8.5-10.1); CARBON DIOXIDE 22.7 mmol/L (21-32); CREATININE 0.7 mg/dL (0.6-1.3); POTASSIUM 3.8 mmol/L (3.5-5.1); TOTAL BILIRUBIN 0.2 mg/dL (0.0-1.0)
[2024-05-01] MEDS ORDERED: LACO100T PO (12:35)
[2024-05-01] MEDS ORDERED: TOP100 PO (12:40)
[2024-05-01] MEDS ORDERED: LEVE750T3 PO (12:41)
== END 2024-05-01 14:55 | disposition home or self-care (01) | DRG 100 ==
LOC: MED 13:34 → MMU 17:54 → MTU 21:45 → MIC 04-26 21:20 → MTU 04-29 18:09
PROVIDERS: ADMIT Student in an Organized Health Care Education/Training Program; ATTEND Student in an Organized Health Care Education/Training Program
PROC: 4A00X4Z Measurement of Central Nervous Electrical Activity, External Approach (ICD-10-PCS; principal; 2024-04-27)
DX: G40.909 Epilepsy, unspecified, not intractable, without status epilepticus (principal); J96.01 Acute respiratory failure with hypoxia; Q87.11 Prader-Willi syndrome; E78.5 Hyperlipidemia, unspecified; J45.909 Unspecified asthma, uncomplicated; E86.0 Dehydration; E11.9 Type 2 diabetes mellitus without complications; I10 Essential (primary) hypertension; Z79.899 Other long term (current) drug therapy; Z88.8 Allergy status to other drugs, medicaments and biological substances; Z79.51 Long term (current) use of inhaled steroids
CPT/HCPCS: 36415; 70450; 71045; 80048; 80053; 81003; 82948; 84703; 85025; 87040; 87081; 92526; 93005; 94640; 95816; 96365; 96375; 96376; 97110; 97163-GP; 97530; 99291; J0696; J1815; J1953; J2060; J2405; J2470; J7060; J7613; Q0092

== ENCOUNTER 2024-07-10 12:46 | Inpatient (IN) | payer OTHER ==
[~2024-07-10] VITALS: Ht 172.7 cm; Wt 138.8 kg
[~2024-07-10 12:46] MED LIST changes: -KEP500 PO; +LACO100T PO; +LEVE750T3 PO; +TOP100 PO
[2024-07-10 12:55] VITALS: BP 110/62; PULSE 93; RESP 16; TEMP 98; O2SAT 96
[2024-07-10 14:37] LABS: BASOPHILS # (AUTO) 0.1 K/uL (0.00-0.22); BASOPHILS % (AUTO) 0.6 % (0.0-2.0); EOSINOPHILS # (AUTO) 0.2 K/uL (0-0.4); EOSINOPHILS % (AUTO) 1.8 % (0.0-4.0); HEMATOCRIT 40.5 % (36-48); HEMOGLOBIN 13.1 g/dL (12.0-16.0); LYMPHOCYTES # (AUTO) 2.4 K/uL (2.5-16.5); LYMPHOCYTES % (AUTO) 23.1 % (20.5-51.1); MEAN CORPUSCULAR HEMOGLOBIN 27 pg (27-31); MEAN CORPUSCULAR HGB CONC 32 g/dL (33-37); MEAN CORPUSCULAR VOLUME 85.1 fL (80-94); MONOCYTES # (AUTO) 0.8 K/uL (0.8-1.0); MONOCYTES % (AUTO) 7.6 % (1.7-9.3); NEUTROPHILS % (AUTO) 66.9 % (42.2-75.2); PLATELET COUNT (AUTO) 166 K/uL (140-450); RED BLOOD CELL COUNT(AUTO) 4.76 MIL/uL (4.20-5.40); RED CELL DISTRIBUTION WIDTH 14.4 % (11.6-13.7); WHITE BLOOD COUNT (AUTO) 10.5 K/uL (4.8-10.8)
[2024-07-10] MEDS ORDERED: LORazepam 2 MG/ML VIAL ONE ×2 (14:49→17:34)
[2024-07-10 14:54] LABS: ANION GAP 15.7 (8-16); CALCIUM 8.9 mg/dL (8.5-10.1); CARBON DIOXIDE 23.9 mmol/L (21-32); CREATININE 0.7 mg/dL (0.6-1.3); POTASSIUM 3.6 mmol/L (3.5-5.1)
[2024-07-10] MEDS: LORazepam 2 MG/ML VIAL IM STA (15:04)
[2024-07-10] MEDS ORDERED: levETIRAcetam 100 MG/ML VIAL IV ONE ×2 (15:07→18:09)
[2024-07-10] MEDS: levETIRAcetam 1,000 MG in NACL 0.9% 100 ML IV ONE ×2 (15:17→18:19)
[2024-07-10] MEDS: LORazepam 2 MG/ML VIAL IVP ONE (18:00)
[2024-07-10] MEDS ORDERED: IBUPROFEN 400 MG TAB PO PRN (18:05)
[2024-07-10] MEDS ORDERED: POTASSIUM CHLORIDE 10 MEQ TABER PO PRN (18:05)
[2024-07-10] MEDS ORDERED: MAGNESIUM OXIDE 400 MG TAB PO PRN (18:05)
[2024-07-10] MEDS ORDERED: DEXTROSE 50% 50 ML SYR IVP PRN (18:15)
[2024-07-10 21:00] VITALS: BP 123/76; PULSE 92; RESP 19; TEMP 97.2; O2SAT 96
[2024-07-10] MEDS: BLOOD GLUCOSE MONITORING 1 DEV DEV FS SCH (23:00)
[2024-07-10] MEDS: LACOSAMIDE 100 MG TAB PO SCH (23:03)
[2024-07-10] MEDS: risperiDONE 1 MG TAB PO SCH (23:04)
[2024-07-10] MEDS: TOPIRAMATE 100 MG TAB PO SCH (23:04)
[2024-07-10] MEDS: INSULIN LISPRO SLIDING SCALE 100 UNITS/ML VIAL SUBQ PRN (23:10)
[2024-07-11] VITALS (10 sets, daily range): BP systolic 106–123; BP diastolic 49–79; PULSE 61–89; RESP 18–21; TEMP 96.5–98.5; O2SAT 94–99
[2024-07-11 06:23] LABS: BASOPHILS # (AUTO) 0.1 K/uL (0.00-0.22); BASOPHILS % (AUTO) 0.6 % (0.0-2.0); EOSINOPHILS # (AUTO) 0.3 K/uL (0-0.4); EOSINOPHILS % (AUTO) 2.4 % (0.0-4.0); HEMATOCRIT 37.8 % (36-48); HEMOGLOBIN 12.4 g/dL (12.0-16.0); LYMPHOCYTES # (AUTO) 3.4 K/uL (2.5-16.5); LYMPHOCYTES % (AUTO) 31.2 % (20.5-51.1); MEAN CORPUSCULAR HEMOGLOBIN 28 pg (27-31); MEAN CORPUSCULAR HGB CONC 33 g/dL (33-37); MEAN CORPUSCULAR VOLUME 84.5 fL (80-94); MONOCYTES # (AUTO) 0.9 K/uL (0.8-1.0); MONOCYTES % (AUTO) 8.4 % (1.7-9.3); NEUTROPHILS # (AUTO) 6.2 K/uL (1.8-7.7); NEUTROPHILS % (AUTO) 57.4 % (42.2-75.2); PLATELET COUNT (AUTO) 185 K/uL (140-450); RED BLOOD CELL COUNT(AUTO) 4.47 MIL/uL (4.20-5.40); RED CELL DISTRIBUTION WIDTH 14.4 % (11.6-13.7); WHITE BLOOD COUNT (AUTO) 10.8 K/uL (4.8-10.8)
[2024-07-11 07:07] LABS: ALBUMIN 3.2 g/dL (3.4-5.0); ANION GAP 16.3 (8-16); CALCIUM 8.9 mg/dL (8.5-10.1); CARBON DIOXIDE 22.6 mmol/L (21-32); CREATININE 0.6 mg/dL (0.6-1.3); MAGNESIUM 2.1 mg/dL (1.8-2.4); PHOSPHORUS 4.1 mg/dL (2.5-4.9); POTASSIUM 3.9 mmol/L (3.5-5.1); TOTAL BILIRUBIN 0.2 mg/dL (0.0-1.0); TOTAL PROTEIN, SERUM 7.3 g/dL (6.4-8.2)
[2024-07-11] MEDS: LOSARTAN 25 MG TAB PO SCH (09:02)
[2024-07-11] MEDS: FLUoxetine 20 MG CAP PO SCH (09:02)
[2024-07-11] MEDS: HALOPERIDOL 5 MG TAB PO SCH (09:02)
[2024-07-11] MEDS: levETIRAcetam 500 MG TAB PO SCH (09:03)
[2024-07-11 12:08] LABS: PHENYTOIN (DILANTIN) 1.1 ug/ml (10.0-20.0); VALPROIC ACID < 3 ug/ml (50-100)
[2024-07-11] MEDS: LORazepam 2 MG/ML VIAL IVP PRN (14:40)
[2024-07-11] MEDS: ATORVASTATIN 20 MG TAB PO SCH (17:00)
[2024-07-11] MEDS: LORazepam 2 MG/ML VIAL IM/IVP SCH (21:03)
[2024-07-11] MEDS: levETIRAcetam 4,500 MG in NACL 0.9% 100 ML IV ONE (21:09)
[2024-07-11] MEDS: levETIRAcetam 100 MG/ML VIAL IV ONE ×2 (21:10→21:11)
[2024-07-12] VITALS (20 sets, daily range): BP systolic 106–137; BP diastolic 60–78; PULSE 67–101; RESP 15–20; TEMP 97.1–98.4; O2SAT 92–100
[2024-07-12 05:28] LABS: ANION GAP 13.3 (8-16); CALCIUM 8.7 mg/dL (8.5-10.1); CARBON DIOXIDE 25.5 mmol/L (21-32); CREATININE 0.6 mg/dL (0.6-1.3); MAGNESIUM 1.9 mg/dL (1.8-2.4); PHOSPHORUS 4.2 mg/dL (2.5-4.9); POTASSIUM 3.8 mmol/L (3.5-5.1); TOTAL BILIRUBIN 0.2 mg/dL (0.0-1.0); TOTAL PROTEIN, SERUM 6.9 g/dL (6.4-8.2)
[2024-07-12 07:59] LABS: BASOPHILS # (AUTO) 0.1 K/uL (0.00-0.22); BASOPHILS % (AUTO) 0.8 % (0.0-2.0); EOSINOPHILS # (AUTO) 0.2 K/uL (0-0.4); HEMATOCRIT 39.3 % (36-48); HEMOGLOBIN 12.6 g/dL (12.0-16.0); LYMPHOCYTES # (AUTO) 2.9 K/uL (2.5-16.5); LYMPHOCYTES % (AUTO) 25.2 % (20.5-51.1); MEAN CORPUSCULAR HEMOGLOBIN 27 pg (27-31); MEAN CORPUSCULAR HGB CONC 32 g/dL (33-37); MEAN CORPUSCULAR VOLUME 84.5 fL (80-94); MONOCYTES # (AUTO) 0.8 K/uL (0.8-1.0); NEUTROPHILS # (AUTO) 7.5 K/uL (1.8-7.7); PLATELET COUNT (AUTO) 216 K/uL (140-450); RED BLOOD CELL COUNT(AUTO) 4.65 MIL/uL (4.20-5.40); RED CELL DISTRIBUTION WIDTH 14.8 % (11.6-13.7); WHITE BLOOD COUNT (AUTO) 11.6 K/uL (4.8-10.8)
[2024-07-12] MEDS: levETIRAcetam 500 MG TAB PO SCH (09:35)
[2024-07-12] MEDS: DIAZEPAM PFS 10 MG/2 ML SYR IVP PRN (13:13)
[2024-07-12] MEDS: LORazepam 2 MG/ML VIAL IVP ONE (18:51)
[2024-07-13] VITALS (14 sets, daily range): BP systolic 97–119; BP diastolic 54–72; PULSE 67–99; RESP 17–20; TEMP 96.2–98; O2SAT 83–100
[2024-07-13 07:12] LABS: BASOPHILS # (AUTO) 0.1 K/uL (0.00-0.22); BASOPHILS % (AUTO) 0.7 % (0.0-2.0); EOSINOPHILS # (AUTO) 0.3 K/uL (0-0.4); EOSINOPHILS % (AUTO) 2.4 % (0.0-4.0); HEMATOCRIT 38.6 % (36-48); HEMOGLOBIN 12.5 g/dL (12.0-16.0); LYMPHOCYTES # (AUTO) 3.5 K/uL (2.5-16.5); LYMPHOCYTES % (AUTO) 29.9 % (20.5-51.1); MEAN CORPUSCULAR HEMOGLOBIN 27 pg (27-31); MEAN CORPUSCULAR HGB CONC 32 g/dL (33-37); MONOCYTES # (AUTO) 0.9 K/uL (0.8-1.0); MONOCYTES % (AUTO) 7.7 % (1.7-9.3); NEUTROPHILS # (AUTO) 6.9 K/uL (1.8-7.7); NEUTROPHILS % (AUTO) 59.3 % (42.2-75.2); PLATELET COUNT (AUTO) 164 K/uL (140-450); RED CELL DISTRIBUTION WIDTH 14.7 % (11.6-13.7); WHITE BLOOD COUNT (AUTO) 11.7 K/uL (4.8-10.8)
[2024-07-13 07:45] LABS: CALCIUM 9.1 mg/dL (8.5-10.1); CARBON DIOXIDE 24.8 mmol/L (21-32); CREATININE 0.7 mg/dL (0.6-1.3); POTASSIUM 3.8 mmol/L (3.5-5.1)
[2024-07-13 07:52] LABS: MAGNESIUM 2.1 mg/dL (1.8-2.4); PHOSPHORUS 4.2 mg/dL (2.5-4.9); TOTAL BILIRUBIN 0.2 mg/dL (0.0-1.0)
[2024-07-13] MEDS ORDERED: DIVALPROEX 500 MG TABEC PO SCH ×2 (13:00→21:00)
[2024-07-13] MEDS: VALPROATE SODIUM 500 MG in NACL 0.9% 100 ML IV SCH ×2 (14:52→21:00)
[2024-07-14] VITALS (10 sets, daily range): BP systolic 99–126; BP diastolic 66–78; PULSE 64–100; RESP 18; TEMP 96.9–97.9; O2SAT 94–99
[2024-07-14 05:24] LABS: BASOPHILS # (AUTO) 0.1 K/uL (0.00-0.22); BASOPHILS % (AUTO) 0.5 % (0.0-2.0); EOSINOPHILS # (AUTO) 0.3 K/uL (0-0.4); EOSINOPHILS % (AUTO) 2.3 % (0.0-4.0); HEMATOCRIT 38.1 % (36-48); HEMOGLOBIN 12.2 g/dL (12.0-16.0); LYMPHOCYTES # (AUTO) 3.4 K/uL (2.5-16.5); LYMPHOCYTES % (AUTO) 28.2 % (20.5-51.1); MEAN CORPUSCULAR HEMOGLOBIN 27 pg (27-31); MEAN CORPUSCULAR HGB CONC 32 g/dL (33-37); MEAN CORPUSCULAR VOLUME 84.4 fL (80-94); MONOCYTES # (AUTO) 1.1 K/uL (0.8-1.0); MONOCYTES % (AUTO) 8.8 % (1.7-9.3); NEUTROPHILS # (AUTO) 7.3 K/uL (1.8-7.7); NEUTROPHILS % (AUTO) 60.2 % (42.2-75.2); PLATELET COUNT (AUTO) 189 K/uL (140-450); RED BLOOD CELL COUNT(AUTO) 4.52 MIL/uL (4.20-5.40); RED CELL DISTRIBUTION WIDTH 14.5 % (11.6-13.7); WHITE BLOOD COUNT (AUTO) 12.1 K/uL (4.8-10.8)
[2024-07-14 05:52] LABS: ALBUMIN 2.9 g/dL (3.4-5.0); ANION GAP 12.7 (8-16); CALCIUM 8.7 mg/dL (8.5-10.1); CARBON DIOXIDE 25.1 mmol/L (21-32); CREATININE 0.7 mg/dL (0.6-1.3); MAGNESIUM 1.9 mg/dL (1.8-2.4); PHOSPHORUS 4.2 mg/dL (2.5-4.9); POTASSIUM 3.8 mmol/L (3.5-5.1); TOTAL BILIRUBIN 0.2 mg/dL (0.0-1.0); TOTAL PROTEIN, SERUM 6.9 g/dL (6.4-8.2)
[2024-07-14] MEDS: NACL 0.9% 500 ML IV ONE ×2 (13:02→20:00)
[2024-07-14] MEDS: NACL 0.9% 1,000 ML IV SCH (13:02)
[2024-07-14 15:32] LABS: APPEARANCE,URINE SLIGHTLY CLOUDY (CLEAR); BILIRUBIN,URINE NEGATIVE (NEGATIVE); BLOOD, URINE TRACE-I (NEGATIVE); COLOR,URINE YELLOW (YELLOW); LEUKOCYTE ESTERASE ,URINE 2+ (NEGATIVE); NITRITE, URINE POSITIVE (NEGATIVE); PROTEIN,URINE NEGATIVE (NEGATIVE); UGLUCOSE NEGATIVE (NEGATIVE); UROBILINOGEN,URINE 0.2 EU/dL (0.2 - 1)
[2024-07-14 15:34] LABS: RBC,URINE 0-5 /HPF (0-5)
[2024-07-14 15:35] LABS: BACTERIA,URINE 2+ /HPF (None Seen); MUCUS,URINE None Seen /LPF (None Seen); SQUAMOUS EPITHELIAL CELL,UR 4-10 (MOD) /LPF (0-3 (FEW))
[2024-07-14] MEDS: LORazepam 2 MG/ML VIAL IVP ONE (19:17)
[2024-07-14] MEDS: LORazepam 2 MG/ML VIAL IVP PRN (20:53)
[2024-07-14] MEDS ORDERED: levETIRAcetam 500 MG TAB PO SCH (21:00)
[2024-07-14] MEDS: levETIRAcetam 500 MG TAB PO SCH (21:00)
[2024-07-14 22:10] LABS: LACTIC ACID 2.5 mmol/L (0.4-2.0)
[2024-07-15] VITALS (14 sets, daily range): BP systolic 108–142; BP diastolic 59–86; PULSE 71–92; RESP 15–20; TEMP 96.3–97.6; O2SAT 95–97
[2024-07-15 05:59] LABS: BASOPHILS % (AUTO) 0.3 % (0.0-2.0); EOSINOPHILS # (AUTO) 0.3 K/uL (0-0.4); EOSINOPHILS % (AUTO) 2.4 % (0.0-4.0); HEMATOCRIT 37.4 % (36-48); LYMPHOCYTES # (AUTO) 3.8 K/uL (2.5-16.5); MEAN CORPUSCULAR HEMOGLOBIN 27 pg (27-31); MEAN CORPUSCULAR HGB CONC 32 g/dL (33-37); MEAN CORPUSCULAR VOLUME 84.8 fL (80-94); MONOCYTES # (AUTO) 0.9 K/uL (0.8-1.0); MONOCYTES % (AUTO) 7.6 % (1.7-9.3); NEUTROPHILS # (AUTO) 6.8 K/uL (1.8-7.7); NEUTROPHILS % (AUTO) 57.7 % (42.2-75.2); PLATELET COUNT (AUTO) 159 K/uL (140-450); RED BLOOD CELL COUNT(AUTO) 4.42 MIL/uL (4.20-5.40); RED CELL DISTRIBUTION WIDTH 14.7 % (11.6-13.7); WHITE BLOOD COUNT (AUTO) 11.8 K/uL (4.8-10.8)
[2024-07-15 06:10] LABS: ALBUMIN 2.7 g/dL (3.4-5.0); ANION GAP 13.6 (8-16); CALCIUM 8.6 mg/dL (8.5-10.1); CARBON DIOXIDE 24.1 mmol/L (21-32); CREATININE 0.6 mg/dL (0.6-1.3); PHOSPHORUS 3.7 mg/dL (2.5-4.9); POTASSIUM 3.7 mmol/L (3.5-5.1); TOTAL BILIRUBIN 0.2 mg/dL (0.0-1.0); TOTAL PROTEIN, SERUM 6.5 g/dL (6.4-8.2)
[2024-07-15] MEDS ORDERED: NACL 0.9% 1,000 ML IV SCH ×2 (10:45→11:40)
[2024-07-15] MEDS: PIPERACILLIN/TAZOBACTAM 3.375 GM in DEXTROSE 5% 50 ML IV SCH (12:46)
[2024-07-16] VITALS (21 sets, daily range): BP systolic 102–142; BP diastolic 49–86; PULSE 69–108; RESP 12–20; TEMP 96.7–98.1; O2SAT 94–98
[2024-07-16 09:29] LABS: BASOPHILS # (AUTO) 0.1 K/uL (0.00-0.22); BASOPHILS % (AUTO) 0.6 % (0.0-2.0); EOSINOPHILS # (AUTO) 0.2 K/uL (0-0.4); EOSINOPHILS % (AUTO) 2.4 % (0.0-4.0); HEMATOCRIT 38.1 % (36-48); HEMOGLOBIN 12.3 g/dL (12.0-16.0); LYMPHOCYTES # (AUTO) 2.1 K/uL (2.5-16.5); LYMPHOCYTES % (AUTO) 20.1 % (20.5-51.1); MEAN CORPUSCULAR HEMOGLOBIN 27 pg (27-31); MEAN CORPUSCULAR HGB CONC 32 g/dL (33-37); MEAN CORPUSCULAR VOLUME 84.8 fL (80-94); MONOCYTES # (AUTO) 0.6 K/uL (0.8-1.0); MONOCYTES % (AUTO) 5.6 % (1.7-9.3); NEUTROPHILS # (AUTO) 7.3 K/uL (1.8-7.7); NEUTROPHILS % (AUTO) 71.3 % (42.2-75.2); PLATELET COUNT (AUTO) 187 K/uL (140-450); RED BLOOD CELL COUNT(AUTO) 4.49 MIL/uL (4.20-5.40); RED CELL DISTRIBUTION WIDTH 14.3 % (11.6-13.7); WHITE BLOOD COUNT (AUTO) 10.3 K/uL (4.8-10.8)
[2024-07-16 09:48] LABS: ALBUMIN 2.7 g/dL (3.4-5.0); ANION GAP 14.1 (8-16); CALCIUM 8.3 mg/dL (8.5-10.1); CARBON DIOXIDE 21.9 mmol/L (21-32); CREATININE 0.8 mg/dL (0.6-1.3); TOTAL BILIRUBIN 0.3 mg/dL (0.0-1.0); TOTAL PROTEIN, SERUM 6.7 g/dL (6.4-8.2)
[2024-07-16] MEDS: ACETAMINOPHEN 325 MG TAB PO PRN (13:21)
[2024-07-17] VITALS (14 sets, daily range): BP systolic 93–134; BP diastolic 64–88; PULSE 70–115; RESP 11–27; TEMP 97–97.4; O2SAT 90–98
[2024-07-17 05:32] LABS: BASOPHILS # (AUTO) 0.1 K/uL (0.00-0.22); BASOPHILS % (AUTO) 0.5 % (0.0-2.0); EOSINOPHILS # (AUTO) 0.4 K/uL (0-0.4); EOSINOPHILS % (AUTO) 3.4 % (0.0-4.0); HEMATOCRIT 37.9 % (36-48); LYMPHOCYTES # (AUTO) 3.6 K/uL (2.5-16.5); LYMPHOCYTES % (AUTO) 32.5 % (20.5-51.1); MEAN CORPUSCULAR HEMOGLOBIN 27 pg (27-31); MEAN CORPUSCULAR HGB CONC 32 g/dL (33-37); MEAN CORPUSCULAR VOLUME 85.2 fL (80-94); MONOCYTES # (AUTO) 0.9 K/uL (0.8-1.0); MONOCYTES % (AUTO) 8.1 % (1.7-9.3); NEUTROPHILS # (AUTO) 6.2 K/uL (1.8-7.7); NEUTROPHILS % (AUTO) 55.5 % (42.2-75.2); PLATELET COUNT (AUTO) 156 K/uL (140-450); RED BLOOD CELL COUNT(AUTO) 4.45 MIL/uL (4.20-5.40); RED CELL DISTRIBUTION WIDTH 14.8 % (11.6-13.7); WHITE BLOOD COUNT (AUTO) 11.1 K/uL (4.8-10.8)
[2024-07-17 06:12] LABS: ALBUMIN 2.8 g/dL (3.4-5.0); ANION GAP 13.6 (8-16); CALCIUM 8.9 mg/dL (8.5-10.1); CARBON DIOXIDE 26.1 mmol/L (21-32); CREATININE 0.7 mg/dL (0.6-1.3); POTASSIUM 3.7 mmol/L (3.5-5.1); TOTAL BILIRUBIN 0.2 mg/dL (0.0-1.0); TOTAL PROTEIN, SERUM 6.6 g/dL (6.4-8.2)
[2024-07-18] VITALS (14 sets, daily range): BP systolic 103–144; BP diastolic 40–79; PULSE 67–96; RESP 15–27; TEMP 97.5–98.7; O2SAT 91–99
[2024-07-18 05:35] LABS: BASOPHILS # (AUTO) 0.1 K/uL (0.00-0.22); BASOPHILS % (AUTO) 0.7 % (0.0-2.0); EOSINOPHILS # (AUTO) 0.3 K/uL (0-0.4); EOSINOPHILS % (AUTO) 2.5 % (0.0-4.0); HEMATOCRIT 40.3 % (36-48); HEMOGLOBIN 12.8 g/dL (12.0-16.0); LYMPHOCYTES # (AUTO) 3.9 K/uL (2.5-16.5); LYMPHOCYTES % (AUTO) 32.9 % (20.5-51.1); MEAN CORPUSCULAR HEMOGLOBIN 27 pg (27-31); MEAN CORPUSCULAR HGB CONC 32 g/dL (33-37); MEAN CORPUSCULAR VOLUME 85.3 fL (80-94); MONOCYTES # (AUTO) 0.9 K/uL (0.8-1.0); MONOCYTES % (AUTO) 7.3 % (1.7-9.3); NEUTROPHILS # (AUTO) 6.7 K/uL (1.8-7.7); NEUTROPHILS % (AUTO) 56.6 % (42.2-75.2); PLATELET COUNT (AUTO) 94 K/uL (140-450); RED BLOOD CELL COUNT(AUTO) 4.72 MIL/uL (4.20-5.40); RED CELL DISTRIBUTION WIDTH 14.7 % (11.6-13.7); WHITE BLOOD COUNT (AUTO) 11.8 K/uL (4.8-10.8)
[2024-07-18 05:42] LABS: ALBUMIN 2.9 g/dL (3.4-5.0); ANION GAP 13.8 (8-16); CARBON DIOXIDE 25.2 mmol/L (21-32); CREATININE 0.6 mg/dL (0.6-1.3); TOTAL BILIRUBIN 0.2 mg/dL (0.0-1.0); TOTAL PROTEIN, SERUM 7.1 g/dL (6.4-8.2)
[2024-07-18] MEDS: LORazepam 2 MG/ML VIAL ONE (21:50)
[2024-07-18] MEDS: LORazepam 2 MG/ML VIAL IVP PRN (21:51)
[2024-07-18] MEDS: DEXMEDETOMIDINE HCL 100 MCG/ML 2 ML VIAL IV ONE (22:16)
[2024-07-19] VITALS (24 sets, daily range): BP systolic 85–121; BP diastolic 49–78; PULSE 57–95; RESP 10–26; TEMP 97.1–98.3; O2SAT 92–100
[2024-07-19] MEDS: ALBUTEROL SULFATE/IPRATROPIU 3 ML SOL IH PRN (04:18)
[2024-07-19 04:54] LABS: BASOPHILS # (AUTO) 0.1 K/uL (0.00-0.22); BASOPHILS % (AUTO) 0.8 % (0.0-2.0); EOSINOPHILS # (AUTO) 0.3 K/uL (0-0.4); EOSINOPHILS % (AUTO) 2.1 % (0.0-4.0); HEMATOCRIT 38.8 % (36-48); HEMOGLOBIN 12.4 g/dL (12.0-16.0); LYMPHOCYTES # (AUTO) 3.2 K/uL (2.5-16.5); LYMPHOCYTES % (AUTO) 26.3 % (20.5-51.1); MEAN CORPUSCULAR HEMOGLOBIN 27 pg (27-31); MEAN CORPUSCULAR HGB CONC 32 g/dL (33-37); MEAN CORPUSCULAR VOLUME 85.1 fL (80-94); MONOCYTES % (AUTO) 8.4 % (1.7-9.3); NEUTROPHILS # (AUTO) 7.6 K/uL (1.8-7.7); NEUTROPHILS % (AUTO) 62.4 % (42.2-75.2); PLATELET COUNT (AUTO) 167 K/uL (140-450); RED BLOOD CELL COUNT(AUTO) 4.56 MIL/uL (4.20-5.40); RED CELL DISTRIBUTION WIDTH 15.2 % (11.6-13.7); WHITE BLOOD COUNT (AUTO) 12.2 K/uL (4.8-10.8)
[2024-07-19 05:05] LABS: ALBUMIN 2.8 g/dL (3.4-5.0); ANION GAP 10.2 (8-16); CALCIUM 8.9 mg/dL (8.5-10.1); CARBON DIOXIDE 29.6 mmol/L (21-32); CREATININE 0.7 mg/dL (0.6-1.3); POTASSIUM 3.8 mmol/L (3.5-5.1); TOTAL BILIRUBIN 0.2 mg/dL (0.0-1.0); TOTAL PROTEIN, SERUM 6.8 g/dL (6.4-8.2)
[2024-07-19] MEDS: DEXMEDETOMIDINE HCL 400 MCG in NACL 0.9% 96 ML IV PRN (05:14)
[2024-07-19] MEDS: PIPERACILLIN/TAZOBACTAM 3.375 GM in DEXTROSE 5% 50 ML IV SCH (12:53)
[2024-07-20] VITALS (19 sets, daily range): BP systolic 88–152; BP diastolic 53–88; PULSE 57–107; RESP 11–26; TEMP 97.1–98.5; O2SAT 94–98
[2024-07-20 05:20] LABS: BASOPHILS # (AUTO) 0.1 K/uL (0.00-0.22); BASOPHILS % (AUTO) 0.4 % (0.0-2.0); EOSINOPHILS # (AUTO) 0.3 K/uL (0-0.4); HEMATOCRIT 39.6 % (36-48); HEMOGLOBIN 12.5 g/dL (12.0-16.0); LYMPHOCYTES # (AUTO) 2.6 K/uL (2.5-16.5); LYMPHOCYTES % (AUTO) 18.9 % (20.5-51.1); MEAN CORPUSCULAR HEMOGLOBIN 27 pg (27-31); MEAN CORPUSCULAR HGB CONC 32 g/dL (33-37); MEAN CORPUSCULAR VOLUME 85.5 fL (80-94); MONOCYTES # (AUTO) 1.2 K/uL (0.8-1.0); MONOCYTES % (AUTO) 8.9 % (1.7-9.3); NEUTROPHILS # (AUTO) 9.5 K/uL (1.8-7.7); NEUTROPHILS % (AUTO) 69.8 % (42.2-75.2); PLATELET COUNT (AUTO) 135 K/uL (140-450); RED BLOOD CELL COUNT(AUTO) 4.64 MIL/uL (4.20-5.40); RED CELL DISTRIBUTION WIDTH 14.5 % (11.6-13.7); WHITE BLOOD COUNT (AUTO) 13.6 K/uL (4.8-10.8)
[2024-07-20 07:14] LABS: ANION GAP 13.7 (8-16); CALCIUM 9.1 mg/dL (8.5-10.1); CARBON DIOXIDE 26.3 mmol/L (21-32); CREATININE 0.7 mg/dL (0.6-1.3)
[2024-07-20 07:31] LABS: ALBUMIN 2.9 g/dL (3.4-5.0); TOTAL BILIRUBIN 0.2 mg/dL (0.0-1.0)
[2024-07-21] VITALS (16 sets, daily range): BP systolic 85–125; BP diastolic 41–98; PULSE 70–106; RESP 13–24; TEMP 97.5–97.8; O2SAT 95–99
[2024-07-21 06:29] LABS: BASOPHILS # (AUTO) 0.1 K/uL (0.00-0.22); BASOPHILS % (AUTO) 0.6 % (0.0-2.0); EOSINOPHILS # (AUTO) 0.2 K/uL (0-0.4); EOSINOPHILS % (AUTO) 1.7 % (0.0-4.0); HEMATOCRIT 38.3 % (36-48); HEMOGLOBIN 12.2 g/dL (12.0-16.0); LYMPHOCYTES # (AUTO) 3.3 K/uL (2.5-16.5); LYMPHOCYTES % (AUTO) 26.2 % (20.5-51.1); MEAN CORPUSCULAR HEMOGLOBIN 27 pg (27-31); MEAN CORPUSCULAR HGB CONC 32 g/dL (33-37); MEAN CORPUSCULAR VOLUME 85.8 fL (80-94); MONOCYTES # (AUTO) 0.9 K/uL (0.8-1.0); MONOCYTES % (AUTO) 7.3 % (1.7-9.3); NEUTROPHILS # (AUTO) 8.1 K/uL (1.8-7.7); NEUTROPHILS % (AUTO) 64.2 % (42.2-75.2); PLATELET COUNT (AUTO) 168 K/uL (140-450); RED BLOOD CELL COUNT(AUTO) 4.47 MIL/uL (4.20-5.40); RED CELL DISTRIBUTION WIDTH 14.7 % (11.6-13.7); WHITE BLOOD COUNT (AUTO) 12.6 K/uL (4.8-10.8)
[2024-07-21 07:09] LABS: ALBUMIN 2.7 g/dL (3.4-5.0); ANION GAP 9.7 (8-16); CALCIUM 9.1 mg/dL (8.5-10.1); CARBON DIOXIDE 27.1 mmol/L (21-32); CREATININE 0.7 mg/dL (0.6-1.3); POTASSIUM 3.8 mmol/L (3.5-5.1); TOTAL BILIRUBIN 0.2 mg/dL (0.0-1.0); TOTAL PROTEIN, SERUM 6.7 g/dL (6.4-8.2)
[2024-07-22] VITALS (10 sets, daily range): BP systolic 104–133; BP diastolic 62–95; PULSE 82–100; RESP 19–24; TEMP 97.2–98.1; O2SAT 94–98
[2024-07-22 07:43] LABS: BASOPHILS # (AUTO) 0.1 K/uL (0.00-0.22); BASOPHILS % (AUTO) 0.4 % (0.0-2.0); EOSINOPHILS # (AUTO) 0.2 K/uL (0-0.4); HEMATOCRIT 38.6 % (36-48); HEMOGLOBIN 12.2 g/dL (12.0-16.0); LYMPHOCYTES % (AUTO) 26.2 % (20.5-51.1); MEAN CORPUSCULAR HEMOGLOBIN 27 pg (27-31); MEAN CORPUSCULAR HGB CONC 32 g/dL (33-37); MEAN CORPUSCULAR VOLUME 85.5 fL (80-94); MONOCYTES % (AUTO) 8.4 % (1.7-9.3); NEUTROPHILS # (AUTO) 7.2 K/uL (1.8-7.7); PLATELET COUNT (AUTO) 171 K/uL (140-450); RED BLOOD CELL COUNT(AUTO) 4.51 MIL/uL (4.20-5.40); RED CELL DISTRIBUTION WIDTH 14.6 % (11.6-13.7); WHITE BLOOD COUNT (AUTO) 11.4 K/uL (4.8-10.8)
[2024-07-22 08:04] LABS: ANION GAP 12.8 (8-16); CALCIUM 9.1 mg/dL (8.5-10.1); CREATININE 0.8 mg/dL (0.6-1.3); POTASSIUM 3.8 mmol/L (3.5-5.1)
[2024-07-22] MEDS ORDERED: LACO100T2 PO (12:03)
[2024-07-22] MEDS ORDERED: LEVE1000 PO (12:46)
== END 2024-07-22 13:11 | disposition home health service (06) | DRG 101 ==
LOC: MED 12:46 → MTU 18:07 → MIC 07-11 20:43 → MTU 07-13 02:15 → MIC 07-14 22:30
PROVIDERS: ADMIT Student in an Organized Health Care Education/Training Program; ATTEND Student in an Organized Health Care Education/Training Program
PROC: 4A00X4Z Measurement of Central Nervous Electrical Activity, External Approach (ICD-10-PCS; principal; 2024-07-10)
DX: G40.401 Other generalized epilepsy and epileptic syndromes, not intractable, with status epilepticus (principal); N39.0 Urinary tract infection, site not specified; G40.909 Epilepsy, unspecified, not intractable, without status epilepticus; R62.50 Unspecified lack of expected normal physiological development in childhood; E11.9 Type 2 diabetes mellitus without complications; D72.829 Elevated white blood cell count, unspecified; I10 Essential (primary) hypertension; E78.5 Hyperlipidemia, unspecified; Z79.899 Other long term (current) drug therapy; Z88.8 Allergy status to other drugs, medicaments and biological substances; Z79.84 Long term (current) use of oral hypoglycemic drugs; Z79.51 Long term (current) use of inhaled steroids
CPT/HCPCS: 36415; 70450; 71045; 80048; 80053; 80156; 80185; 81001; 82948; 83605; 83735; 84100; 85025; 87040; 87081; 87086; 94640; 95816; 96374; 96375; 97112; 97116; 97163-GP; 97530; 99291; J0696; J1630; J1815; J1953; J2060; J2543; J3360; J3490; J7060; Q0092